=== PATIENT | female | born 1980 | race Hispanic/Latino ===

== ENCOUNTER 2018-09-25 21:20 | Emergency (ER) | payer OTHER ==
[2018-09-25] MEDS ORDERED: Sodium Chloride 0.9% 1,000 ML IV STA (21:59)
--- NOTE | 2018-09-25 22:16 | ED PDOC ---
HPI: SOB/CHF/COPD Time Seen by Provider: 09/25/18 21:35 Chief Complaint (Nursing): Shortness Of Breath Chief Complaint (Provider): Shortness Of Breath History Per: Patient History/Exam Limitations: no limitations Onset/Duration Of Symptoms: Hrs (x 1 hour prior to arrival) Current Symptoms Are (Timing): Still Present Quality: "Pain" Associated Symptoms: Other (flank pain) Additional Complaint(s): 38 year old female with no medical history presents to the ED with left flank pain associated with shortness of breath, onset 1 hour prior to arrival. Pain radiates to front and up into chest as well as down left arm. Patient reports she feeling normally before onset. She took Aleve without relief. Patient is on control. Denies cough, leg swelling, recent immobilization , surgeries, prolonged flights, nausea, vomiting and urinary symptoms. PMD: none provided - Risk Factors PE Risk Factors: Neg: Extremity Immobilization/Fx, Decreased Mobilty /Activity, Recent Major Surgery, Recent Hospitalization Past Medical History Reviewed: Historical Data, Nursing Documentation, Vital Signs Vital Signs: Last Vital Signs Temp 98.4 F 09/25/18 21:26 Pulse 110 H 09/25/18 21:26 Resp 20 09/25/18 21:48 BP 147/88 09/25/18 21:26 Pulse Ox 98 09/25/18 21:48 - Medical History PMH: No Chronic Diseases - Surgical History Other surgeries: precancerous lesion resection in chest - Family History Family History: States: Stroke, Other Other Family History: father has atrial fibrillation - Home Medications Home Medications: Ambulatory Orders Medication Instructions Recorded Naproxen [Naprosyn] 500 mg PO Q12 #14 tab 09/26/18 traMADol [Ultram] 50 mg PO Q6 PRN #12 tab 09/26/18 - Allergies Allergies/Adverse Reactions: Allergies Allergy/AdvReac Type Severity Reaction Status Date / Time No Known Allergies Allergy Verified 09/25/18 21:26 Review of Systems ROS Statement: Except As Marked, All Systems Reviewed And Found Negative Cardiovascular: Positive for: Chest Pain (radiated from flank pain) Respiratory: Positive for: Shortness of Breath. Negative for: Cough Gastrointestinal: Negative for: Nausea, Vomiting Genitourinary Female: Negative for: Dysuria, Frequency, Incontinence, Hematuria Musculoskeletal: Positive for: Arm Pain (left; radiated from flank pain), Back Pain Physical Exam - Reviewed Nursing Documentation Reviewed: Yes Vital Signs Reviewed: Yes - Physical Exam Appears: Positive for: In Acute Distress Head Exam: Positive for: ATRAUMATIC, NORMOCEPHALIC Skin: Positive for: Warm, Dry. Negative for: Normal Color ((+) skin is flushed) Eye Exam: Positive for: EOMI, PERRL ENT: Negative for: Pharyngeal Erythema, Tonsillar Exudate Neck: Positive for: Painless ROM, Supple Cardiovascular/Chest: Positive for: Regular Rate, Rhythm. Negative for: Murmur Respiratory: Positive for: Normal Breath Sounds (lungs clear; ), Respiratory Distress (patient is tachypneic ). Negative for: Accessory Muscle Use Gastrointestinal/Abdominal: Positive for: Soft. Negative for: Tenderness Back: Positive for: L CVA Tenderness Extremity: Positive for: Normal ROM. Negative for: Deformity Lymphatic: Negative for: Adenopathy Neurologic/Psych: Positive for: Alert. Negative for: Motor/Sensory Deficits - Laboratory Results Result Diagrams: 09/25/18 22:25 09/25/18 22:25 - ECG O2 Sat by Pulse Oximetry: 98 (RA) Pulse Ox Interpretation: Normal Medical Decision Making Medical Decision Makin:56 Impression: flank pain and shortness of breath Differential dxs include but are not limited to: renal colic, PE Initial Plan: --CT Abd & pelvis --BNP --CMP --Mag --Phos --troponin --Urine dip --Urine preg --CBC --D Dimer --NS IV --Toradol 30 mg IVP --Tylenol [address] Abd & pelvis FINDINGS: Mild left pleural effusion. Passive atelectatic airspace disease of the left lower lobe. Subsegmental atelectatic airspace disease in the right lower lobe. 4.3 cm right ovarian cyst. Moderate amount of fecal residue large bowel suggestive of constipation. Normal unenhanced liver. Normal gallbladder and extrahepatic biliary system. Normal unenhanced spleen. Normal pancreas. Normal bilateral adrenal glands. Normal size of the right kidney. There is no right renal mass. There are no right renal calculi. There is no right hydronephrosis. Normal visualized right ureter. Normal size of the left kidney. There is no left renal mass. There are no left renal calculi. There is no left hydronephrosis. Normal visualized left ureter. Normal visualized stomach. Normal small intestine. Normal colon. The appendix is visualized and appears normal. There is no demonstrated peritoneal fluid. Normal abdominal aorta. Normal inferior vena cava. Normal retroperitoneum. Normal urinary bladder. There is no pelvic mass lesion or lymphadenopathy. There is no pelvic fluid. Normal abdominal wall. Normal osseous structures. IMPRESSION: Mild left pleural effusion. Passive atelectatic airspace disease of the left lower lobe. Subsegmental atelectatic airspace disease in the right lower lobe. 4.3 cm right ovarian cyst. Moderate amount of fecal residue large bowel suggestive of constipation. [address] Wallace, pending chest CTA. -- Scribe Attestation: Documented by Cata Pollock acting as a scribe for Lidia Box MD Provider Scribe Attestation: All medical record entries made by the Scribe were at my direction and personal ly dictated by me. I have reviewed the chart and agree that the record accurately reflects my personal performance of the history, physical exam, medical decision making, and the department course for this patient. I have also personally directed, reviewed, and agree with the discharge instructions and disposition. Disposition - Clinical Impression Clinical Impression: Pleuritic chest pain - Disposition Disposition: Transfer of Care Disposition Time: 00:00 Condition: STABLE Prescriptions: Naproxen [Naprosyn] 500 mg PO Q12 #14 tab traMADol [Ultram] 50 mg PO Q6 PRN #12 tab PRN Reason: flank,chest wall pain
[2018-09-25 22:33] LABS: BASO % 0.5 % (0.0-2.0); EOS # 0.2 K/uL (0.0-0.7); EOS % 2.2 % (0.0-4.0); HEMOGLOBIN 12.5 g/dL (12.0-16.0); LYMPH # 1.8 K/uL (1.0-4.3); LYMPH % 20.1 % (20.0-40.0); MEAN CELL VOLUME 93.4 fl (81.0-99.0); MEAN CORPUSCULAR HEMOGLOBIN 31.2 pg (27.0-31.0); MEAN CORPUSCULAR HGB CONC 33.4 g/dL (33.0-37.0); MEAN PLATELET VOLUME 9.5 fl (7.2-11.7); MONO # 0.5 K/uL (0.0-0.8); MONO % 5.7 % (0.0-10.0); NEUT # 6.5 K/uL (1.8-7.0); NEUT % 71.5 % (50.0-75.0); NRBC % 0.2 % (0.0-0.0); RED CELL DISTRIBUTION WIDTH 13.1 % (11.5-14.5); WHITE BLOOD COUNT 9.1 K/uL (4.8-10.8)
[2018-09-25 22:46] LABS: ALB/GLOB RATIO 1.2 (1.0-2.1); ALBUMIN 4.1 g/dL (3.5-5.0); ALT/SGPT 22 U/L (9-52); AST/SGOT 24 U/L (14-36); BLOOD UREA NITROGEN 10 mg/dl (7-17); CALCIUM 9.3 mg/dL (8.4-10.2); GFR NON-AFRICAN AMERICAN > 60
[2018-09-25 22:58] LABS: B-TYPE NATRIURETIC PEPTIDE 68.9 pg/ml (0-450)
[2018-09-25 23:05] LABS: SQUAMOUS EPITHIAL 4 /hpf (0-5); URINE BACTERIA RARE (<OCC); URINE BILIRUBIN NEGATIVE (NEGATIVE); URINE BLOOD SMALL (NEGATIVE); URINE CLARITY SLIGHTY-CLOUDY (Clear); URINE COLOR YELLOW (YELLOW); URINE GLUCOSE (UA) NEG (NEGATIVE); URINE LEUKOCYTE ESTERASE TRACE Leu/uL (Negative); URINE PROTEIN NEGATIVE (NEGATIVE); URINE UROBILINOGEN 0.2-1.0 mg/dL (0.2-1.0)
--- NOTE | 2018-09-26 00:31 | ED PDOC ---
- Laboratory Results Result Diagrams: 09/25/18 22:25 09/25/18 22:25 - ECG O2 Sat by Pulse Oximetry: 98 (RA) Pulse Ox Interpretation: Normal Medical Decision Making Medical Decision Makin Patient endorsed by Dr. Box, pending chest CTA. [address] Angio FINDINGS: Mild left pleural effusion. Passive atelectatic airspace disease of the left lower lobe. Normal enhancement of the main pulmonary artery and right and left pulmonary arteries. Normal enhancement of the bilateral peripheral pulmonary arteries. There is no demonstrated pulmonary embolism. Subsegmental atelectatic airspace disease in the right lower lobe. Normal thoracic aorta and visualized great vessels. There is no demonstrated aortic dissection. Normal heart and pericardium. Normal mediastinum. Normal hilar regions. Normal visualized trachea and bronchi. Normal chest wall structures. Normal osseous structures. Normal visualized upper abdomen. IMPRESSION: No demonstrated pulmonary embolism or arterial dissection. Mild left pleural effusion. Passive atelectatic airspace disease of the left lower lobe. Subsegmental atelectatic airspace disease of the right lower lobe. 0231 US reviewed and shows no significant abnormality. Patient reports improvement in symptoms and is stable for discharge. Diagnosis is pleuritic chest pain. Scribe Attestation: Documented by Nisa Mendez, acting as a scribe for Celestino Wallace MD. Provider Scribe Attestation: All medical record entries made by the Scribe were at my direction and personally dictated by me. I have reviewed the chart and agree that the record accurately reflects my personal performance of the history, physical exam, medical decision making, and the department course for this patient. I have also personally directed, reviewed, and agree with the discharge instructions and disposition. Disposition - Clinical Impression Clinical Impression: Pleuritic chest pain - POA Present On Arrival: None - Disposition Disposition: Routine/Home Disposition Time: 02:31 Condition: STABLE Prescriptions: Naproxen [Naprosyn] 500 mg PO Q12 #14 tab traMADol [Ultram] 50 mg PO Q6 PRN #12 tab PRN Reason: flank,chest wall pain
[2018-09-26] MEDS ORDERED: Iodixanol 320 MG/ML 100 ML BOTTLE IV ONE (01:01)
[2018-09-26] MEDS ORDERED: Sodium Chloride 0.9% 50 ML IV ONE (01:01)
[2018-09-26 02:47] VITALS: BP 124/69; PULSE 79; RESP 18; TEMP 97.9
--- NOTE | 2018-09-26 07:19 | CT ---
Date of service: 09/25/2018 PROCEDURE: CT Abdomen and Pelvis without intravenous contrast HISTORY: LEFT flank pain COMPARISON: None. TECHNIQUE: Technique. Contrast dose: Radiation dose: Total exam DLP = 268.2 mGy-cm. This CT exam was performed using one or more of the following dose reduction techniques: Automated exposure control, adjustment of the mA and/or kV according to patient size, and/or use of iterative reconstruction technique. FINDINGS: LOWER THORAX: Small left pleural effusion and left lower lobe atelectatic change. LIVER: Unremarkable. No gross lesion or ductal dilatation. GALLBLADDER AND BILE DUCTS: Unremarkable. PANCREAS: Unremarkable. No gross lesion or ductal dilatation. SPLEEN: Unremarkable. ADRENALS: Unremarkable. No mass. KIDNEYS AND URETERS: Unremarkable. No hydronephrosis. No solid mass. VASCULATURE: Unremarkable. No aortic aneurysm. No aortic atherosclerotic calcification or mural plaque present. BOWEL: Unremarkable. No obstruction. No gross mural thickening. APPENDIX: Unremarkable. Normal appendix. PERITONEUM: Unremarkable. No free fluid. No free air. LYMPH NODES: Unremarkable. No enlarged lymph nodes. BLADDER: Unremarkable. REPRODUCTIVE: 4.3 centimeter right ovarian cyst/cystic lesion. BONES: No acute fracture. OTHER FINDINGS: None. IMPRESSION: 4.3 centimeter right ovarian cyst/cystic lesion.Small left pleural effusion and left lower lobe atelectatic change.
--- NOTE | 2018-09-26 07:42 | CT ---
Date of service: 09/26/2018 PROCEDURE: CT Chest with contrast (Pulmonary Angiogram) HISTORY: shortness of breath LEFT sided chest pain COMPARISON: None available. TECHNIQUE: Axial computed tomography images were obtained of the chest in the pulmonary arterial phase of enhancement. Coronal and sagittal reformatted images were created and reviewed. Intravenous contrast dose: Radiation dose: Total exam DLP = 176.31 mGy-cm. This CT exam was performed using one or more of the following dose reduction techniques: Automated exposure control, adjustment of the mA and/or kV according to patient size, and/or use of iterative reconstruction technique. FINDINGS: PULMONARY ARTERIES: Unremarkable. No pulmonary embolism. AORTA: No acute findings. No thoracic aortic aneurysm. No aortic atherosclerotic calcification or mural plaque present. LUNGS: Unremarkable. No nodule, mass or pulmonary consolidation. PLEURAL SPACES: Small left pleural effusion. Mild bibasilar atelectatic change. HEART: Unremarkable. No cardiomegaly. No significant pericardial effusion. LYMPH NODES: No lymphadenopathy. BONES, CHEST WALL: Unremarkable. No fracture or destructive lesion OTHER FINDINGS: Unremarkable. IMPRESSION: Small left pleural effusion. Mild bibasilar atelectatic change.
[2018-09-26 22:31] VITALS: O2SAT 98
--- NOTE | 2018-09-26 22:58 | CARD ---
APPROVED REPORT Date of service: 09/25/2018 EKG Measurement Heart [id number] <Conclusion> Sinus tachycardia Rightward axis Nonspecific ST and T wave abnormality Abnormal ECG
== END 2018-09-26 02:47 | disposition home or self-care (01) ==
LOC: H.ER 21:20
DX: R07.81 Pleurodynia (principal); J44.9 Chronic obstructive pulmonary disease, unspecified
CPT/HCPCS: 71275; 74176; 80053; 81003; 81025; 83735; 83880; 84100; 84484; 85025; 85378; 87086; 93005; 96361; 96374; 99284; J1885; J7030; Q9967